=== PATIENT | female | born 1960 | race Caucasian/White ===

== ENCOUNTER 2018-02-07 14:00 | Outpatient (RCR) | payer BC, SELFPAY ==
--- NOTE | 2018-02-02 13:58 | HP.PTEVAL ---
Patient's Visit Information NNEKA WALL is a 57 year old F referred to Physical Therapy by Jarocho Foster DO with a diagnosis of Radiculopathy. Date of Evaluation: 02/02/18 Physical Therapist: Chad Alves PT, - Visit Plan Frequency: 1x/Week Plan: Educate and issue HEP of REIl, core stab ex's, HS rollout, and postural education - Subjective Findings: Pt reports she has had LBP for a few years. Pt reports she has been trying to exercise on her own in order to decrease her pain. Pt reports the pain has been progressively worsening over this span. Pt reports she has been taking meds also to decrease her pain. Pt notes she has had xrays and MRI which revealed degernerative changes in the L/S. Pt reports she has sleep difficulty secondary to pain. Pt reports prolonged standing increases her pain. Pt reports she has to lay down sometines to aleviate her pain. No tingling or numbness in her legs. 6/10 at rest, 7/10 at worst (prolonged standing). 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 - Pain LBP Pain Intensity (Out of 10): 6 Pain Intensity Range: 7 - Objective R Neuro: B LE sensation is WNL to light touch. B patellar reflex= 2/3. MMT: L LE 5/5 throughout. R LE 4/5 and painful with testing. L/S ROM: all ranges are WNL. Repeated movements: RFIS 10x2 increase R gluteal pain. MARIN 10x3 decreased pain - Goals Goal 1:: I with HEP in 2-3 visits Goal Time Frame: 2 Weeks - Rehabilitation Potential Physical Therapy Diagnosis: Pt has R gluteal pain and difficulty with prolonged standing secondary to L/S discderrangement Rehabilitation Potential: Good - Anticipated Interventions Patient/Client Instruction: Educate patient on: Condition, Plan of Care For the Purpose of:: To improve self management Therapeutic Exercise to Include: Strength training, Flexibilty training, Dynamic Lumbar Stabilization, Mikki Exercises For the Purpose of:: To decrease pain, To improve muscle performance and motor function Cryotherapy (ice pack, ice massage): Yes Thermo therapy (hot pack): Yes For the Purpose of:: To decrease pain, To increase ROM Thank you for the opportunity to evaluate your patient. For Medicare and Medicare HMO plans, please review the plan of care and approve it. It will need to be FAXED BACK to us at [phone] for Medicare purposes. For Medicare only, by signing this I certify the plan of care. Please let me know if there are questions or concerns regarding this plan of care. Physician Signature: Date:
--- NOTE | 2018-03-28 11:35 | HP.PT.NRP ---
HP - Discharge Summary (1) - Patient Information NNEKA WALL was seen in my office for initial evaluation on 02/02/18. The following Plan of Care was established for this patient: Initial Frequency: 1x/Week - Anticipated Interventions Patient/Client Instruction: Educate patient on: Condition, Plan of Care For the Purpose of:: To improve self management Therapeutic Exercise to Include: Strength training, Flexibilty training, Dynamic Lumbar Stabilization, Mikki Exercises For the Purpose of:: To decrease pain, To improve muscle performance and motor function Cryotherapy (ice pack, ice massage): Yes Thermo therapy (hot pack): Yes For the Purpose of:: To decrease pain, To increase ROM This patient was last seen in our office . Pertinent comments regarding their Physical therapy will appear below: Pt was treated for her second PT appointment on the date of 02/07/18 for her LBP. I planned on treating her again after that date, but pt has not returned through todays date and is therefore discontinued at this time At this point I will be discontinuing this patient from physical therapy. I would be happy to see this patient again in the future if found appropriate by the physician. Thank you! Chad Alves, PT, ATC
--- OUTSIDE RECORDS SUMMARY | 2018-03-30 15:20 | XMS RPT_ITS ---
:1960 Author Organization OHIP Care Team Providers Name Role Phone Jarocho Foster Attending Unavailable Jarocho Foster Primary Care Unavailable Jarocho Foster Attending Unavailable Jarocho Foster Referring Unavailable Jarocho Foster Primary Care Unavailable PROBLEMS PROBLEMS No Problem Records FoundPROCEDURES PROCEDURES No Procedure Records FoundRESULTS RESULTS INITAL EVALUATION (1) Observed: 02/02/2018 Status: F Source: [place] - PT 1:58 PM [facility] REPOSITORY [facility] [address] [place] [address] [address] [place] [address] Fax REHABILITATION SERVICES INITIAL EVALUATION MR#: [id number] Acct: [id number] Name: NNEKA WALL Rep #: [id number] : 1960 57 From: Chad Alves PT, ATC Referring DrLashanda: Jarocho Foster DO Status: REG RCR Insurance: [facility] PACKAGE PLAN Patient's Visit Information NNEKA WALL is a 57 year old F referred to Physical Therapy by Jarocho Foster DO with a diagnosis of Radiculopathy. Date of Evaluation: 11/29/18 Physical Therapist: Chad Alves, PT, - Visit Plan Frequency: 1x/Week Plan: Educate and issue HEP of REIl, core stab ex's, HS rollout, and postural education - Subjective Findings: Pt reports she has had LBP for a few years. Pt reports she has been trying to exercise on her own in order to decrease her pain. Pt reports the pain has been progressively worsening over this span. Pt reports she has been taking meds also to decrease her pain. Pt notes she has had xrays and MRI which revealed degernerative changes in the L/S. Pt reports she has sleep difficulty secondary to pain. Pt reports prolonged standing increases her pain. Pt reports she has to lay down sometines to aleviate her pain. No tingling or numbness in her legs. 6/10 at rest, 7/10 at worst (prolonged standing). 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 - Pain LBP Pain Intensity (Out of 10): 6 Pain Intensity Range: 7 - Objective R Neuro: B LE sensation is WNL to light touch. B patellar reflex= 2/3. MMT: L LE 5/5 throughout. R LE 4/5 and painful with testing. L/S ROM: all ranges are WNL. Repeated movements: RFIS 10x2 increase R gluteal pain. MARIN 10x3 decreased pain - Goals Goal 1:: I with HEP in 2-3 visits Goal Time Frame: 2 Weeks - Rehabilitation Potential Physical Therapy Diagnosis: Pt has R gluteal pain and difficulty with prolonged standing secondary to L/S discderrangement Rehabilitation Potential: Good - Anticipated Interventions Patient/Client Instruction: Educate patient on: Condition, Plan of Care For the Purpose of:: To improve self management Therapeutic Exercise to Include: Strength training, Flexibilty training, Dynamic Lumbar Stabilization, Mikki Exercises For the Purpose of:: To decrease pain, To improve muscle performance and motor function Cryotherapy (ice pack, ice massage): Yes Thermo therapy (hot pack): Yes For the Purpose of:: To decrease pain, To increase ROM Thank you for the opportunity to evaluate your patient. For Medicare and Medicare HMO plans, please review the plan of care and approve it. It will need to be FAXED BACK to us at [phone] for Medicare purposes. For Medicare only, by signing this I certify the plan of care. Please let me know if there are questions or concerns regarding this plan of care. Physician Signature: Date: <Electronically signed by Chad Alves PT, ATC> 02/02/18 1358 CC: Jarocho Foster DO [facility] Signed HIP 2-3 VIEWS WITH Observed: 03/16/2017 Status: F Source: [place] PELVIS 7:33 AM [facility] REPOSITORY [facility] Imaging Services [address] [place] [address] [place] [address] Hip 2-3 Views with Pelvis MR#: [id number] Acct: [id number] Name: NNEKA WALL Rep #: [id number] : 1960 F 56 From: Justo Croft MD PCP: Jarocho Foster DO Status: REG CLI Study: Hip 2-3 Views with Pelvis Date of Exam: 03/16/17 Exam# [id number] Ordering Dr: Jarocho Foster DO STUDY: X-RAY - PELVIS AND RIGHT HIP REASON FOR EXAM: Female, 56 years old. Chronic pain in the right hip TECHNIQUE: Radiological exam, hip, unilateral, with pelvis when performed; 2 or 3 views. COMPARISON: None. FINDINGS: There is a non-specific bowel gas pattern. There is a small calcific deposit adjacent to the greater trochanter consistent with calcific peritendinitis. There is a transitional lumbosacral vertebra. Normal bilateral iliac wings, sacroiliac joints and visualized sacrum. Normal bilateral superior and inferior pubic rami. Normal pubic symphysis. Normal bilateral ischial tuberosities. Normal visualized femoral head. Normal acetabulum. Normal hip joint. RAD/Hip 2-3 Views with Pelvis IMPRESSION: Calcific peritendinitis adjacent to the right greater trochanter Transitional lumbosacral vertebra Electronically Signed: Justo Croft MD, FACR at 12:22 EST , Service support , CC: Jarocho Foster DO Wrapper Layer: Signed L/S SPINE MIN 4 Observed: 03/16/2017 Status: F Source: [place] VIEWS 7:33 AM [facility] REPOSITORY [facility] Imaging Services [address] [place] [address] L/S Spine Min 4 Views MR#: [id number] Acct: [id number] Name: NNEKA WALL Rep #: [id number] : 1960 F 56 From: Justo Croft MD PCP: Jarocho Foster DO Status: REG CLI Study: L/S Spine Min 4 Views Date of Exam: 03/16/17 Exam# [id number] Ordering Dr: Jarocho Foster DO STUDY: X-RAY - LUMBAR SPINE REASON FOR EXAM: Female, 56 years old. Chronic low back and right hip pain TECHNIQUE: 5 view(s) of the lumbar spine were obtained. COMPARISON: X-rays of the lumbar spine on January 09, 2014 FINDINGS: Normal lumbar lordosis. There is no substantial scoliosis. There is a normal alignment of the vertebrae. There is a transitional lumbosacral vertebra with sacralization of L5 Normal vertebral bodies. There are small anterior osteophytes throughout the lumbar spine. There is disc space narrowing at L5-S1. The soft tissue structures are unremarkable. RAD/L/S Spine Min 4 Views IMPRESSION: Transitional lumbosacral vertebrae with sacralization of L5 and rudimentary disc at L5-S1. Mild degenerative changes. No significant changes since the prior study. Electronically Signed: Justo Croft MD, FACR at 12:24 EST , Service support , CC: Jarocho Foster DO Wrapper Layer: Signed ALLERGIES ALLERGIES No Allergies Records FoundENCOUNTERS ENCOUNTERS ADMIT/DISCHARGE ACCOUNT ADMITTING ENCOUNTER LOCATION SOURCE NUMBER CLASS 02/07/2018 [id number] Ambulatory [place] [facility] ing:PT Repository 03/16/2017 [id number] Ambulatory [place] [facility] ing:MTRAD Repository PAYERS PAYERS ENCOUNTER GUARANTOR PAYER SUBSCRIBER SOURCE 02/07/2018 VAIBHAV [id number] Primary VAIBHAV HOGEADOB: [place] HEND[place] JONA, Insurance:[employer] [id number] [facility] [address]Ktn: y Number: Hospital [id number] Repository (HP) kassidy Date:8528-24-81SX [id number] [place] [address]MU: 02/07/2018 Secondary NNEKA HOGEADOB: [place] Insurance:[employer] [id number] [facility] Number: Hospital [id number] Repository Date:2018-02-01 02/07/2018 Tertiary NOT GIVENUNK [place] Insurance:SELF PAY [facility] Number: Effective Repository Date:2018-02-01 03/16/2017 Vaibhav [id number] Primary VAIBHAV HOGEADOB: [place] Jona, Insurance:ANTHE[employer]olic [id number] [facility] [address]Wyh: y Number: [facility] [id number] Repository (HP) kassidy Date:3287-43-22SY [address], [place] [address]NV: 03/16/2017 Secondary NOT GIVENUNK [place] Insurance:SELF PAY [facility] Number: Effective Repository Date:2017-03-16
== END 2018-02-07 19:00 | disposition home or self-care (01) ==
LOC: PT 14:00
PROVIDERS: Family Provider Family Medicine; PCP Family Medicine; Referring Provider Family Medicine; Visit Provider Family Medicine
DX: M54.16 Radiculopathy, lumbar region (principal)
CPT/HCPCS: 97162; 97530

== ENCOUNTER → 2018-03-28 13:53 | Outpatient (CLI) | payer BC, SELFPAY ==
[2018-03-31 11:41] LABS: HPV Reflexed? NOT INDICATED
--- OUTSIDE RECORDS SUMMARY | 2018-05-30 18:52 | XMS RPT_ITS ---
:1960 Author Organization OHIP Care Team Providers Name Role Phone Gena Mcfarlane Attending Unavailable Jarocho Foster Attending Unavailable Jarocho Foster Referring Unavailable Jarocho Foster Primary Care Unavailable PROBLEMS PROBLEMS DATE TYPE CONDITION / CODE ATTENDING STATUS SOURCE 03/28/2018 Unknown Z12.4 - Gena Mcfarlane Active [place] Encounter for Community screening for Hospital malignant Repository neoplasm of cervix / Z12.4(ICD-10) 03/30/2018 Unknown M54.16 - Jarocho Foster Active [place] Radiculopathy, Community lumbar region / Hospital M54.16(ICD-10) Repository PROCEDURES PROCEDURES No Procedure Records FoundRESULTS RESULTS PAP I-G W/RFX HRHPV Collected: 03/28/2018 Status: F Source: [place] 10:30 AM [facility] REPOSITORY Order Comment: CYTOLOGY INFORMATION: - CLINICAL INFORMATION: - DATE LMP/MENOPAUSE: MENOPAUSE - COLLECTION VIAL: Thin Prep Vial - MOTION STUDY TECHNICIAN SOURCE: CERVICAL/ENDOCERVICAL - COLLECTION TECHNIQUE: BRUSH/SPATULA Specimen Comment: [id number] Specimen Comment: Source.............Cervix;Endocervix Specimen Comment: Other..............Post Menopausal Specimen Comment: No. of containers..01 ThinPrep Vial TYPE CODE TESTS RESULT OUT OF RANGE REFERENCE UNITS LAB L7400.0800 . Normal DIAGN Comment Result Comment: NEGATIVE FOR INTRAEPITHELIAL LESION OR MALIGNANCY. LAB L7400.0900 . Normal ADEQ Comment Result Comment: Satisfactory for evaluation. Endocervical and/or squamous metaplastic cells (endocervical component) are present. LAB L7400.1400 . Normal PERFORM Comment Result Comment: Megan Palacio, Mailing Machine Helper (ASCP) LAB L7400.2575 . Normal TEST METHOD Comment Result Comment: This liquid based ThinPrep(R) pap test was screened with the use of an image guided system. LAB L7400.2600 . Normal . COMM LAB L7400.2700 . Normal PAPSMR Comment Result Comment: The Pap smear is a screening test designed to aid in the detection of premalignant and malignant conditions of the uterine cervix. It is not a diagnostic procedure and should not be used as the sole means of detecting cervical cancer. Both false-positive and false-negative reports do occur. LAB L7400.2800 . Normal HPV RFLX Comment Result Comment: The HPV DNA reflex criteria were not met with this specimen result therefore, no HPV testing was performed. Performed at: [address] [id number] Insurance Salesman: Tuyet Parmar MD, Phone: [phone] Performed By: #### L7400.0350 #### [facility] (refer to report for specific site) refer to report for address and phone number INITAL EVALUATION (1) Observed: 02/02/2018 Status: F Source: [place] - PT 1:58 PM [facility] REPOSITORY [facility] Physical Therapy [address] [place], [place] [address] Fax REHABILITATION SERVICES INITIAL EVALUATION MR#: [id number] Acct: [id number] Name: NNEKA WALL Rep #: [id number] : 1960 57 From: Chad Alves PT, ATC Referring Dr.: Jarocho Foster DO Status: REG RCR Insurance: [facility] PACKAGE PLAN Patient's Visit Information NNEKA WALL is a 57 year old F referred to Physical Therapy by Jarocho Foster DO with a diagnosis of Radiculopathy. Date of Evaluation: 02/02/18 Physical Therapist: Chad Alves, PT, - Visit [...] at worst (prolonged standing). 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 - Pain LBP Pain Intensity (Out of [...] to be FAXED BACK to us at [phone] for Medicare purposes. For Medicare only, by signing this I certify the plan of care. Please let me know if there are questions or concerns regarding this plan of care. Physician Signature: Date: <Electronically signed by Chad Alves PT, ATC> 02/02/18 1358 CC: Jarocho Foster DO [facility] Signed ALLERGIES ALLERGIES No Allergies Records FoundENCOUNTERS ENCOUNTERS ADMIT/DISCHARGE ACCOUNT ADMITTING ENCOUNTER LOCATION SOURCE NUMBER CLASS 03/28/2018 [id number] Ambulatory [place] [facility] ing:LABSPEC Repository 02/07/2018/ [id number] Ambulatory [place] [address] [place] [address] ing:PT Repository PAYERS PAYERS ENCOUNTER GUARANTOR PAYER SUBSCRIBER SOURCE 03/28/2018 VAIBHAV [id number] Primary VAIBHAV HOGEADOB: [place], Insurance:[employer] [id number] [facility] [place] [address]Bel: y Number: [facility] [id number] Repository (HP) kassidy Date:[id number] [address], [place] [address]JV: 03/28/2018 Secondary NOT GIVENUNK [place] Insurance:SELF PAY [facility] Number: Effective Repository Date:2018-03-28 02/07/2018 VAIBHAV [id number] Primary VAIBHAV HOGEADOB: [place] BRANDIELILIAN ORTA, Insurance:[employer] [id number] [facility] [place] [address]Bvv: y Number: [facility] [id number] Repository (HP) kassidy Date:6379-63-40ZL [address] [place] [address]XY: 02/07/2018 Secondary NNEKA CHELEB: [place] Insurance:[facility] PACKAGE [id number] [facility] [id number] Repository Date:2018-02-01 02/07/2018 Tertiary NOT GIVENUNK [place] Insurance:SELF PAY [facility] Number: Effective Repository Date:2018-02-01
== END ==
PROVIDERS: Visit Provider Obstetrics & Gynecology
DX: Z12.4 Encounter for screening for malignant neoplasm of cervix (principal)
CPT/HCPCS: 88175; G0145

== ENCOUNTER → 2018-05-01 07:04 | Outpatient (CLI) | payer BC, SELFPAY ==
--- NOTE | 2018-05-01 07:07 | BI_ITS ---
MAMMOGRAPHY - BILATERAL SCREENING REASON FOR EXAM: Female, 57 years old. Routine annual screening examination. PERTINENT HISTORY: Non-contributory. TECHNIQUE: Digital bilateral breast jeanette (3D mammographic acquisition) in the CC and MLO projections. 2-D mediolateral oblique (MLO) and craniocaudad (CC) views of both breasts were obtained. CAD: Full Field Digital Mammography with Computer Added Detection was performed. COMPARISON: Comparison is made with prior study dated June 10, 2012 and June 23, 2009. FINDINGS: Breast Composition: There are scattered areas of fibroglandular density. There are no dominant masses or suspicious calcifications. No other significant abnormalities are identified. There has been no significant change since the prior study. BI/SCREENING MAMM (CAD), BILAT IMPRESSION: Stable bilateral screening mammogram. Yearly follow-up mammogram recommended. (A) ASSESSMENT CATEGORY: BIRADS Category 1: Negative. A letter regarding these results will be sent to the patient by the facility within 30 days. Approximately 10% of breast cancers are not detected by mammography. A normal mammogram should not delay biopsy of a clinically suspicious abnormality. [id number] Electronically Signed: Basilio Perdue MD at 9:40 EST , Service support ,
== END ==
PROVIDERS: Family Provider Family Medicine; PCP Family Medicine; Referring Provider Obstetrics & Gynecology; Visit Provider Obstetrics & Gynecology
DX: Z12.31 Encounter for screening mammogram for malignant neoplasm of breast (principal)
CPT/HCPCS: 77063; 77067

== ENCOUNTER → 2018-05-17 16:43 | Outpatient (CLI) | payer BC, SELFPAY ==
--- NOTE | 2018-05-17 16:47 | MRI_ITS ---
STUDY: MRI LUMBAR SPINE WITHOUT CONTRAST REASON FOR EXAM: Female, 57 years old. Lower back pain radiating into right leg TECHNIQUE: Standardized fat and water weighted pulse sequences were obtained in the sagittal and axial planes. COMPARISON: None FINDINGS: T12-L1: Normal endplates. Normal disc height, hydration and morphology. Normal bilateral facet joints. Normal central canal and bilateral lateral recesses. Normal bilateral intervertebral neural foramina. Normal lumbar lordosis. There is no substantial scoliosis. Normal conus medullaris that terminates at the L1-2: There are Schmorl's nodes at L1 and L2. Normal disc height, hydration and morphology. Normal bilateral facet joints. Normal central canal and bilateral lateral recesses. Normal bilateral intervertebral neural foramina. L2-3: There is a small likely ligamentous central disc protrusion. Moderate facet degenerative changes and ligamentous hypertrophy. Mild central canal narrowing. There is no left foraminal stenosis. There is mild right foraminal stenosis. There is mild increased T2 signal within the right posterior lateral disc margin. L3-4: There is disc space narrowing. There is a small central posterior bulging annulus. There are moderate facet degenerative changes and ligamentous hypertrophy. There is Mild central canal narrowing. There is mild left lateral foraminal narrowing. There is no right foraminal stenosis. L4-5: There is a small central likely subligamentous disc protrusion. There are moderate facet degenerative changes and ligamentous hypertrophy. Mild central canal narrowing. There is no right foraminal stenosis. There is mild right foraminal stenosis. L5-S1: Normal endplates. Normal disc height, hydration and morphology. There is mild facet spondylosis.. Normal central canal and bilateral lateral recesses. Normal bilateral intervertebral neural foramina. Normal visualized sacral ala. Normal visualized paraspinous soft tissue structures. MRI/Spine Lumbar (Routine) IMPRESSION: Multilevel spondylosis as above, multilevel disc osteophytes, multilevel central canal and foraminal stenoses Subligamentous disc protrusions at L4-L5 and L2-L3 Right posterior lateral bulging annulus and small annular tear at L2-L3 Electronically Signed: Ollie Bernal, at 0:14 EDT Tel , Service support ,
== END ==
PROVIDERS: Family Provider Family Medicine; PCP Family Medicine; Referring Provider Anesthesiology Pain Medicine; Visit Provider Anesthesiology Pain Medicine
DX: M51.17 Intervertebral disc disorders with radiculopathy, lumbosacral region (principal); M54.5 Low back pain
CPT/HCPCS: 72148

== ENCOUNTER → 2018-07-06 | Outpatient (CLI) | payer BC, SELFPAY ==
[2018-07-06 10:29] LABS: Anion Gap 8 (5-15); BUN 16 mg/dL (7-18); BUN/Creat Ratio 20.4 RATIO (10-20); Calcium,Total 9.2 mg/dL (8.5-10.1); Chloride 107 mmol/L (98-107); Creatinine, Serum 0.78 mg/dL (0.55-1.02); EST Glomerular Filtration Rate 80 mL/min (>60); Est Glom Filt Rate - Afr Amer 97 mL/min (>60); Glucose 89 mg/dL (74-106); Potassium 3.9 mmol/L (3.5-5.1); Sodium Level 141 mmol/L (136-145)
== END | disposition home or self-care (01) ==
LOC: MTLAB 07:02
PROVIDERS: Family Provider Family Medicine; PCP Family Medicine; Referring Provider Nurse Practitioner Family; Visit Provider Nurse Practitioner Family
DX: Z79.1 Long term (current) use of non-steroidal anti-inflammatories (NSAID) (principal)
CPT/HCPCS: 36415; 80048

== ENCOUNTER → 2018-07-26 | Outpatient (CLI) | payer BC, SELFPAY ==
[2018-07-26 11:18] LABS: Bacteria 0 SEEN /hpf (None Seen); Mucous, Urine 0 SEEN /hpf (<or=2+); Red Blood Cells-Urine 0 SEEN /hpf (0-5)
[2018-07-26 12:41] LABS: Absolute Lymphocyte Count 1.87 X10^3/ul (0.83-4.51); Absolute Neutrophil Count 6.4 X10^3/uL (2.0-7.7); Basophil# 0.04 X10^3/uL; Basophil% 0.4 % (0-1); Eosinophil# 0.12 X10^3/uL; Eosinophils% 1.3 % (0-5); Lymphocyte # 1.87 X10^3/ul (4.0); Lymphocyte % 20.5 % (19-41); Mean Corp Hgb Conc 34.1 g/gl (32-36); Mean Corpuscular Hgb 30.3 pg (27.0-32.0); Mean Corpuscular Volume 88.9 fL (81-99); Monocyte# 0.73 X10^3/uL; Neutrophil # 6.36 X10^3/uL (2.7-7.7); Neutrophil % 69.6 % (47-70); Platelet Count 306 K/mm3 (150-450); RBC Distribution Width CV 12.2 % (11.6-14.6); RBC Distribution Width SD 39.5 fl (35.1-43.9); Red Blood Count 4.95 M/mm3 (4.2-5.4); White Blood Count 9.1 K/mm3 (4.4-11.0)
[2018-07-26 12:49] LABS: POSITIVE COUNT NO; POSITIVE DIFFERENTIAL NO; POSITIVE MORPHOLOGY NO
[2018-07-26 12:58] LABS: Vitamin B12 530 pg/mL (211-911)
[2018-07-26 13:03] LABS: Color, Urine Yellow (Yellow); Glucose, Dipstick Normal (Normal); Ketone-Dipstick Negative (Negative); Leukocyte Esterase-Dipstick 500 /ul (Negative); Nitrite-Dipstick Negative (Negative); Occult Blood-Urine Negative /ul (Negative); Protein-Dipstick Negative (Negative); Urine Bilirubin Dipstick Negative (Negative); Urine Clarity Sl. Cloudy (Clear); Urine Urobilinogen Normal (Normal)
[2018-07-26 13:05] LABS: AST(SGOT) 16 U/L (15-37); Alanine Aminotransfer ALT/SGPT 30 U/L (13-56); Albumin, Serum 4.2 g/dL (3.2-5.0); Alkaline Phosphatase 77 U/L (45-117); Bilirubin, Direct 0.12 mg/dL (0.00-0.30); Protein, Total 8.2 g/dL (6.4-8.2); T4 Free Direct 0.99 ng/dL (0.76-1.46)
[2018-07-26 13:10] LABS: Squamous Epithelial Cells - UA 0-5 SEEN /hpf (5-10); White Blood Cells 25-50 SEEN /hpf (0-5)
== END | disposition home or self-care (01) ==
LOC: BFHLAB 11:15
PROVIDERS: Family Provider Family Medicine; PCP Family Medicine; Visit Provider Family Medicine
DX: G62.9 Polyneuropathy, unspecified (principal); R53.83 Other fatigue; M54.5 Low back pain
CPT/HCPCS: 36415; 80076; 81001; 82607; 84439; 84443; 85025

== ENCOUNTER → 2019-03-29 07:05 | Outpatient (CLI) | payer BC, SELFPAY ==
[2019-03-29 10:23] LABS: ALB/GLOB Ratio 1.2 RATIO (0.9-2.4); AST(SGOT) 19 U/L (15-37); Alanine Aminotransfer ALT/SGPT 33 U/L (13-56); Albumin, Serum 4.1 g/dL (3.2-5.0); Alkaline Phosphatase 72 U/L (45-117); Anion Gap 5 (5-15); BUN 16 mg/dL (7-18); BUN/Creat Ratio 18.4 RATIO (10-20); Calcium,Total 9.2 mg/dL (8.5-10.1); Chloride 108 mmol/L (98-107); Cholesterol 272 mg/dL (200); Creatinine, Serum 0.87 mg/dL (0.55-1.02); EST Glomerular Filtration Rate 71 mL/min (>60); Est Glom Filt Rate - Afr Amer 86 mL/min (>60); Globulin 3.4 g/dL (2.2-4.2); Glucose 95 mg/dL (74-106); High Density Lipoprotein 44 mg/dL; Potassium 3.7 mmol/L (3.5-5.1); Protein, Total 7.5 g/dL (6.4-8.2); Sodium Level 140 mmol/L (136-145); Triglycerides 187 mg/dL; Very Low Density Lipoprotein 37 mg/dL (5-40)
== END ==
PROVIDERS: PCP Family Medicine; Referring Provider Family Medicine; Visit Provider Family Medicine
DX: Z00.00 Encounter for general adult medical examination without abnormal findings (principal)
CPT/HCPCS: 36415; 80053; 80061

== ENCOUNTER 2019-04-11 15:00 | Outpatient (RCR) | payer BC, SELFPAY ==
--- NOTE | 2019-02-05 13:10 | HP.PTEVAL ---
Patient's Visit Information NNEKA WALL is a 58 year old F referred to Physical Therapy by Ingrid Ch MD with a diagnosis of S/P RIGHT HIP SCOPE 01/17/19.. Date of Evaluation: 02/05/19 Physical Therapist: Puja Rivas PT, Cert MDT - Visit Plan Frequency: 2-3x /Week Duration: 4-6 Weeks Plan: AVOID PAIN CHECK INCISION. START CIRCUMDUCTION PER PROTOCOL NEXT VISIT. REVIEW PRECAUTIONS NEXT VISIT. LABRAL TEAR MILTON (FEMOROACETABULAR IMPINGEMENT SYNDROME) PROTOCOL. OK TO BEGIN WBAT AT WEEK 4 POST OP (02/14/19). SEE PROTOCOL IN FOLDER. - Subjective Findings: DIAGNOSIS: S/P RIGHT HIP SCOPE WITH LABRAL REPAIR. DECOMPRESSION OF PARA;ABRAL CYST. ACETABULOPLASTY. CHONDROPLASTY. SYNOVECTOMY. FEMOROPLASTY. CAPSULAR CLOSURE ON 01/17/19. 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 5 DAYS AFTER SURGERY SHE RESUMED WORKING FROM HER BED AT HOME MUCH SHE COULD. PLANS TO GO IN TO WORK TODAY FOR THE FIRST TIME. Disability: NO. Present symptoms: MILD RIGHT HIP PAIN. NO LE NUMBNESS OR TINGLING. NO LOW BACK PAIN NOW BUT DID AFTER SURGERY. Present since: ABOUT 5 YEARS AGO. Pain Scale: WORST 3/10, LEAST 0/10. Currently: 2/10. Commenced as a result of: NO APPARENT REASON OTHER THAN SLIPPING ON ICE ABOUT 3 YEARS AGO. Symptoms at onset: RIGHT HIP PAIN RADIATING TO BACK AND LEFT HIP. RIGHT KNEE TINGLING BEFORE SURGERY. Worse: TOUCHING FOOT DOWN ON FLOOR. KNOWS SHE IS NOT SUPPOSED TO TOUCH IT DOWN YET BUT SHE TESTED IT A LITTLE AND IT HURT. STATES THE DOCTOR TOLD HER NOT TO PUT IT DOWN AT ALL YET UNTIL 4 WEEKS. Better: LYING DOWN FLAT ON BACK. Disturbed sleep: NOT DUE TO HIP PAIN. Previous history/Previous treatment: PATIENT REPORTS SHE STARTED SEEKING HELP FOR THIS IN 2013. MOST OF THE FOCUS WITH IMAGING AND TREATMENT HAS FOCUSED ON HER BACK UNTIL ABOUT AUGUST [address] JULIANO AMBROSE TOLD HER IT IS NOT HER BACK. HE REFERRED HER TO DR. INGRID CH AND ORDERED MRI WITH CONTRAST. PATIENT REPORTS SHE HAD 5 OR 6 MRI'S OF HER LOW BACK, SAW A CHIROPRACTOR AND EVEN HAD DANK'S WITHOUT SUCCESS. PATIENT REPORTS HAVING BAD SIDE EFFECTS TO THE DANK'S. Gait: USING CRUTCHES AND TRYING TO MAINTAIN NWB. Difficulty initiating urinatin: NO. Accidents: NO. Unexplained weight loss: NO. Imaging: NONE SINCE SURGERY. PMH: UNREMARKABLE. 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 HAD TO STOP WORKING OUT AT [employer] IN APPROX APR 2018 DUE TO HIP PAIN. OTHER: WAS USING CPM MACHINE AT HOME FOR HIP X 2 WEEKS AFTER SURGERY AND REPORTS SHE GOT UP TO 120 DEG. RETURNED MACHINE AT SURGICAL FOLLOW UP LAST WEEK. - Objective THIS PATIENT AMBULATES INDEP'LY INTO PT ON NGUYEN AXILLARY CRUTCHES NWB ON RIGHT LE. SHE IS ABLE TO INDEP'LY TRANSFER FROM SIT TO STAND AND REVERSE, AND FROM SIT TO SUPINE AND REVERSE. NGUYEN LE LIGHT TOUCH SENSATION, ROM AND STRENGTH IS WFL EXCEPT RIGHT HIP MMT NOT PERFORMED AND PATIENT HAS RIGHT HIP AAROM FLEXION TO AT LEAST 100 DEG. ABLE TO DO ASSISTED SLR WITHOUT DIFFICULTY ON RIGHT BUT NO ACTIVE SLR YET PER PROTOCOL. RIGHT KNEE ANKLE AND FOOT ROM AND STRENGTH IS GOOD. CORE STRENGTH IS POOR. INITIATED HEP OF ISO ABDOMINALS, GLUT SETS, QUAD SETS AND SUPINE HIP ABD/ADD (3X10, 3 TIMES A DAY) WITH GOOD TOLERANCE TODAY. ENCOURAGED PATIENT TO MAINTAIN NWB STATUS PER SURGEON UNTIL 4 WEEKS PO. INSTRUCTED TO AVOID HIP EXTENSION. ALSO INSTRUCTED TO AVOID HIP ROTATION UNTIL FURTHER INSTRUCTION GIVEN. PRECAUTIONS REVIEWED PER PROTOCOL BUT RECOMMEND REINFORCEMENT NEXT VISIT. PATIENT MOVES A LITTLE IMPULSIVELY AT TIMES BUT FOLLOWS COMMANDS WELL. PATIENT APPEARS HIGHLY MOTIVATED TO RETURN TO PLOF. - Goals Goal 1:: DECREASE C/O RIGHT HIP PAIN Goal Time Frame: 4-6 Weeks Goal 2:: INDEP AND SAFE GAIT ON ALL SURFACES WITH LEAST ASSISTIVE DEVICE AND DEVIATIONS PROGRESSING PER PROTOCOL Goal Time Frame: 4-6 Weeks Goal 3:: IMPROVE STANDING, WALKING, ADL, WORK AND RECREATIONAL FUNCTION TOLERATED ADN PER PROTOCOL Goal Time Frame: 4-6 Weeks Goal 4:: INDEP HEP FOR CONTINUED IMRPVEMENT ONCE FORMAL PHYSICAL THERAPY CONCLUDES. Goal Time Frame: 4-6 Weeks - Rehabilitation Potential Rehabilitation Potential: Fair - Anticipated Interventions Patient/Client Instruction: Educate patient on: Condition, Plan of Care, Risk Factors, Benefits of Fitness Program For the Purpose of:: To improve self management Therapeutic Exercise to Include: Strength training, Body mechanics, Postural training, Flexibilty training, Gait and locomotor training, Passive ROM, Active ROM, Dynamic Lumbar Stabilization, Scapular Strength/Stabilization Comment: PER FAIS PROTOCOL ON FILE. For the Purpose of:: To decrease pain, To decrease swelling/inflammation, To increase ROM, To improve muscle performance and motor function, To improve ability to perform ADL's, To increase tolerance to activity/condition/position, To improve ability of physical actions for home/community/work/leisure, To improve gait and locomotor functions Thank you for the opportunity to evaluate your patient. For Medicare and Medicare HMO plans, please review the plan of care and approve it. It will need to be FAXED BACK to us at [phone] for Medicare purposes. For Medicare only, by signing this I certify the plan of care. Please let me know if there are questions or concerns regarding this plan of care. Physician Signature: Date:
--- NOTE | 2019-03-06 14:12 | HP.PTREVAL ---
Fran Yates MD, It has been my pleasure to treat NNEKA WALL over the last 12 visits for S/P RIGHT HIP SCOPE 01/17/19.. Please see the progress note below for an update on the physical therapy plan of care! Subjective: PATIENT REPORTS LOW BACK PAIN AFTER PROGRESSING FROM MODIFIED PLANKS TO FULL PLANKS LAST VISIT. STATES HER BACK IS BETTER NOW. PATIENT REPORTS THAT OVER-ALL SHE IS GETTING BETTER. SHE STATES SHE HAS A LOT BETTER FLEXABILITY OF HER LEG NOW AND SHE HAS STRENGTH NOW. SHE STATES IT IS A LOT BETTER AND HER LEG WAS VERY WEAK BEFORE. SHE REPORTS THAT WHEN SHE BENDS OVER HER LEGS STILL FEEL SOME TIGHT. SHE ALSO REPORTS THAT IF SHE MOVES HER RIGHT LEG OUT TO THE SIDE OR ROTATES IT TOO MUCH IT STARTS TO HER IN HER HIP. FOLLOW UP PENDING WITH SURGEON NEXT WEEK. PATIENT REPORTS SHE SITS TOO MUCH ALL DAY AND CAN GET UP TO 4/10 PAIN. DOING HEP AND THE EX'S DO NOT HURT. Objective/Function: PATIENT IS MAKING GREAT PROGRESS WITH PT. HER GAIT PATTERN HAS NORMALIZED AND SHE DENIES PAIN WITH WALKING. PATIENT REPORTS NORMAL ADL'S EXCEPT SHE HAS TO REST ABOUT EVERY 40 MINUTES AND SHE HAS SOME PAIN TRYING TO GET RIGHT SHOE ON. PATIENT IS MAKING GREAT PROGRESS TOWARD MEETING THE 4-8 WEEK PO PROTOCOL CRITERIA FOR PROGRESSION TO PHASE 3: HER HIP PAIN FREE ROM IS BECOMING SYMMETRICAL EXCEPT ERP WITH RIGHT HIP ER. SHE HAS SYMMETRICAL DOUBLE LEG SQUAT TO 60 DEG KNEE FLEX. SHE IS ABLE TO DO 10 REPS OF STEP DOWNS WITH GOOD NEUROMUSCULAR CONTROL AND SHE HAS A NORMALIZED GAIT PATTERN WITHOUT PAIN. Plan Plan: HOLD PT UNTIL SURGICAL RE-CHECK NEXT WEEK. PATIENT AGREEABLE. IF SO ORDERED, CONTINUE PER PROTOCOL IN FILE APPROPRIATE. Goals Goal 1:: DECREASE C/O RIGHT HIP PAIN Goal Time Frame: 4-6 Weeks Goal Progress: Progressing Goal 2:: INDEP AND SAFE GAIT ON ALL SURFACES WITH LEAST ASSISTIVE DEVICE AND DEVIATIONS PROGRESSING PER PROTOCOL Goal Time Frame: 4-6 Weeks Goal Progress: Progressing Goal 3:: IMPROVE STANDING, WALKING, ADL, WORK AND RECREATIONAL FUNCTION TOLERATED ADN PER PROTOCOL Goal Time Frame: 4-6 Weeks Goal Progress: Progressing Goal 4:: INDEP HEP FOR CONTINUED IMRPVEMENT ONCE FORMAL PHYSICAL THERAPY CONCLUDES. Goal Time Frame: 4-6 Weeks Goal Progress: Progressing Anticipated Interventions Patient/Client Instruction: Educate patient on: Condition, Plan of Care, Risk Factors, Benefits of Fitness Program For the Purpose of:: To improve self management Therapeutic Exercise to Include: Strength training, Body mechanics, Postural training, Flexibilty training, Gait and locomotor training, Passive ROM, Active ROM, Dynamic Lumbar Stabilization, Scapular Strength/Stabilization Comment: PER FAIS PROTOCOL ON FILE. For the Purpose of:: To decrease pain, To decrease swelling/inflammation, To increase ROM, To improve muscle performance and motor function, To improve ability to perform ADL's, To increase tolerance to activity/condition/position, To improve ability of physical actions for home/community/work/leisure, To improve gait and locomotor functions Please do not hesitate to contact me at [phone] by phone or if you have questions or concerns regarding this new plan of care! Sincerely, Puja Rivas, PT, Cert MDT
--- NOTE | 2019-05-11 13:30 | HP.PT.NRP ---
HP - Discharge Summary (1) - Patient Information NNEKA WALL was seen in my office for initial evaluation on 02/05/19. The following Plan of Care was established for this patient: Initial Frequency: 2-3x /Week Initial Duration: 4-6 Weeks - Anticipated Interventions Patient/Client Instruction: Educate patient on: Condition, Plan of Care, Risk Factors, Benefits of Fitness Program For the Purpose of:: To improve self management Therapeutic Exercise to Include: Strength training, Body mechanics, Postural training, Flexibilty training, Gait and locomotor training, Passive ROM, Active ROM, Dynamic Lumbar Stabilization, Scapular Strength/Stabilization For the Purpose of:: To decrease pain, To decrease swelling/inflammation, To increase ROM, To improve muscle performance and motor function, To improve ability to perform ADL's, To increase tolerance to activity/condition/position, To improve ability of physical actions for home/community/work/leisure, To improve gait and locomotor functions This patient was last seen in our office 04/11/19. Pertinent comments regarding their Physical therapy will appear below: This patient has not returned to Physical Therapy and is appropriate to return to MD for further follow-up as needed. At this point I will be discontinuing this patient from physical therapy. I would be happy to see this patient again in the future if found appropriate by the physician. Thank you! Puja Rivas, PT, Cert MDT
== END 2019-04-11 19:00 | disposition home or self-care (01) ==
LOC: PT 15:00
PROVIDERS: Family Provider Family Medicine; PCP Family Medicine; Referring Provider Orthopaedic Surgery Sports Medicine; Visit Provider Orthopaedic Surgery Sports Medicine
DX: M25.851 Other specified joint disorders, right hip (principal)
CPT/HCPCS: 97110; 97162; 97530

== ENCOUNTER 2019-08-03 06:57 | Day surgery (SDC) | payer BC, SELFPAY ==
[2019-08-03 07:21] VITALS: BP 158/89; PULSE 86; RESP 16; TEMP 36.4; O2SAT 100; BMI 28.8
[2019-08-03] MEDS: Lactated Ringers 1,000 ML 100 ML IV (07:28)
--- NOTE | 2019-08-03 07:49 | H&P.OPEN ---
History of Present Illness Date of Admission: 08/03/19 The patient is a 58 year old F here for screening colonoscopy. The patient reports he has never had a colonoscopy in the past. She is not having any abdominal pain or blood in her stool. She denies any family history of colon cancer. Past Medical/Surgical History - Planned Operation Planned Operative Procedure/s: COLONOSCOPY Date of Operative Procedure: 08/03/19 Permit Signed: Yes S.O.S: No Is This Patient Having a Total Joint: No - Previous Hospitalizations/Surgeries HX Hospitalizations: No HX of Surgeries: LABRUM REPAIR RIGHT LEG Any Problems With Anesthesia: No You/Your Family Experience Fever (Hyperthermia) With Anes: No Cholinesterase deficiency: No - Cardiovascular Hx Chest Pain within Last 2 months: No Hx of Irregular Heartbeat and/or Afib: No Hx Heart Attack: No Hx Congestive Heart Failure: No Hx Rheumatic Fever: No Hx Hypertension: Yes - FEW YRS AGO, NO MEDS PRESENTLY Hx Internal Defibrillator: No Hx Pacemaker: No Hx Cardiac Catheterization: No Hx Cardiac Surgery/Stents/Etc.: No Hx Stress Test: No HX Edema: No Hx Pain in Legs when Walking/Leg Cramps: No - Respiratory Chronic Cough: No HX of Shortness of Breath: No Hoarseness: No Hx Chronic Obstructive Pulmonary Disease (COPD): No Hx Asthma: No Hx Emphysema: No Hx Sleep Apnea: No Hx Oxygen Use at Home: No Hx Respiratory Tract Infection/Cold (presently): No Do You Snore Loudly (louder than talking or can be heard): Yes Do You Often Feel Tired/ Fatigued/ Sleepy Dring Daytime?: No Has Anyone Observed You Stop Breathing During Sleep?: No Result (for STOP score): Positive Hx Smoking: Yes Smoking Status: Former smoker - Gastrointestinal Hx Gastroesophageal Reflux: Yes Controlled With Meds: No - PRN Hx Gastrointestinal Disorders: No Hx Gastrointestinal Bleed: No Hx Ulcer: No Hx Hiatal Hernia: No Difficulty Chewing/Swallowing: No Recent Onset of Swallowing Problems: No Special diet followed at home: No Hx Unplanned Weight Loss of 20#: No HX Unplanned Weight Gain of 20#: No - Neurological Hx Seizures: No HX Syncope/Blackout Spells/Unconsciousness: No Hx CVA/Stroke: No Hx Transient Ischemic Attacks (TIA): No Hx Multiple Sclerosis: No Hx Parkinson's Disease: No Hx Head/Neck Injury: No Hx Headaches: No Hx Back Injury/Pain: No Recent Onset of Speech Difficulty: No Restless Legs: No Does patient have nerve stimulator: No - Blood Disorder Hx Leukemia: No Bleeding Tendencies: No Hx Deep Vein Thrombosis: No Hx High Cholesterol: No Blood Transmitted Disease: No Hx Hepatitis: No Hx Cirrhosis: No Hx Anemia: No Hx Blood Disorders: No - Reproduction : No Is Patient Lactating: No Hx Hysterectomy: No Hx Tubal Ligation: No Are You Post Menopause: Yes - Genitourinary Hx Renal Disease: No - Musculoskeletal Hx Arthritis: No Hx Rheumatoid Arthritis: No Hx Gout: No Recent Onset of an Orthopedic Problem: No - Endocrine Hx Diabetes: No Thyroid Disease: No Hx Steroid Therapy: No - Psycho/Social Hx Substance Use: No Hx Alcohol Use: Yes - SOCIAL Hx Anxiety: No Hx Depression: No Mental Illness: No Hx Dementia: No - Miscellaneous Hx Cancer: No Recent Exposure to Contagious Disease: No Active MRSA: No Hx of C-Diff: No Any Loose Teeth: No Allergies acetaminophen [From Vicodin] Allergy (Verified 08/03/19 07:19) Vomiting hydrocodone [From Vicodin] Allergy (Verified 08/03/19 07:19) Vomiting oxycodone Allergy (Verified 08/03/19 07:19) PT UNSURE OF REACTION HALLUCINATIONS codeine Adverse Reaction (Verified 08/03/19 07:19) Nausea - Discharge Is Pt Admitted From a Intermediate, or a Alf: No Who Could Help: After D/C, Where Do you Plan to Go: Return Home - Physical Exam Vitals/I&O's: Vital Signs Temp Pulse Resp BP Pulse Ox 97.5 F L 86 16 158/89 H 100 08/03/19 07:21 08/03/19 07:21 08/03/19 07:21 08/03/19 07:21 08/03/19 07:21 Oxygen Delivery Method Room Air Weight: 167 lb 8.821 oz Body Mass Index (BMI) 28.8 General: Alert, Oriented x3 Neck: No JVD Lungs: Normal air movement Cardiovascular: Regular rate, Regular Rhythm Abdomen: Soft, Non Tender, Non-Distended Microbiology Past 72 Hours 08/02/19 09:00 Mucosa - Nasopharyngeal Coronavirus COVID-19 PCR - Final Laboratory Results 08/03/19 07:55: COVID-19 (COTY) Cancelled Current Medications Lactated Ringer's () 1,000 mls @ 100 mls/hr IV .Q10H CHANDAN Last Admin: 08/03/19 07:28 Dose: 100 mls/hr Documented by: Assessment/Plan 58-year-old female screening for colon cancer I explained endoscopy in detail to the patient. I explained the risks including but not limited to stroke or heart attack with anesthesia, perforation of the GI tract, bleeding, infection. I explained that any of these could necessitate further emergency surgery. The patient understands and all questions were answered sufficiently. The patient wishes to proceed with procedure. We discussed the current risks associated with COVID-19. While it is understood that there is a community spread of COVID-19, the risk of zurdo COVID-19 while at [facility] ([facility]) is very low; however, the risk cannot be completely mitigated because of the community spread of the disease. We discussed in detail the risk of exposure to and/or potential harm posed by the COVID-19 virus with having a surgery/procedure at this time versus the risk of delaying the surgery/procedure. It is not possible to know either the risk of delaying the surgery or procedure or chance of getting an infection with perfect accuracy, but a joint decision was made to proceed at this time with the scheduled surgery/procedure as indicated on the consent form. Patient was notified that we will need to comply with any screening or testing [facility] wishes to perform or that surgery may be delayed for any positive results. Emerson Ritter MD Pager: [facility] [address] [place] [address] [address] [place] [address] Office: Surgery Risks - Colonoscopy Risks Include but are not Limited To: Risks include but are not limited to: Bleeding, perforation requiring further surgery, inability to complete colonoscopy requiring barium enema.
[2019-08-03 08:16] VITALS: BP 123/71; BP 158/89; PULSE 81; RESP 16; TEMP 36.1; O2SAT 98
[2019-08-03 08:20] VITALS: BP 117/77; BP 158/89; PULSE 78; RESP 16; O2SAT 97
--- NOTE | 2019-08-03 08:20 | OP.CCLET_ITS ---
08/03/2019 Jarocho Foster [address] [place] [address] Re : Colonoscopy procedure for Gaby Davidson Dear Dr. Foster This procedure was performed on Saturday, August 03, 2019. My impressions and recommendations are as follows: Impressions : - The entire examined colon is normal on direct and retroflexion views. - No specimens collected. Recommendations : - Discharge patient to home. - Resume previous diet. - Continue present medications. - Repeat colonoscopy in 10 years for screening purposes. My findings are described in the full procedure note, which is enclosed. If I can be of further assistance, please feel free to contact me at Doctor phone number(s): , Work: . Sincerely, Emerson Ritter MD 08/03/2019 8:20:04 AM This report has been signed electronically.
--- NOTE | 2019-08-03 08:20 | OP.COLON_ITS ---
Patient Name: Gaby Davidson Procedure Date: 08/03/2019 7:01 AM Date of : 1960 Age: 58 Procedure: Colonoscopy Indications: Screening for colorectal malignant neoplasm Providers: Emerson Ritter MD Referring MD: Jarocho Foster Medicines: Monitored Anesthesia Care Patient Profile: This is a 58 year old female. Refer to note in patient chart for documentation of history and physical. Last Colonoscopy: none. The patient's first colonoscopy is today. Complications: No immediate complications. Estimated blood loss: None. Procedure: Pre-Anesthesia Assessment: - Prior to the procedure, a History and Physical was performed, and patient medications and allergies were reviewed. The patient's tolerance of previous anesthesia was also reviewed. The risks and benefits of the procedure and the sedation options and risks were discussed with the patient. All questions were answered, and informed consent was obtained. Prior Anticoagulants: The patient has taken no previous anticoagulant or antiplatelet agents. After reviewing the risks and benefits, the patient was deemed in satisfactory condition to undergo the procedure. After I obtained informed consent, the scope was passed under direct vision. Throughout the procedure, the patient's blood pressure, pulse, and oxygen saturations were monitored continuously. The colonoscope was introduced through the anus and advanced to the cecum, identified by appendiceal orifice and ileocecal valve. The colonoscopy was performed without difficulty. The patient tolerated the procedure well. The quality of the bowel preparation was good. Scope In: 8:01:54 AM Scope Withdrawal Time 0 hours 6 minutes 6 seconds Scope Out: 8:12:30 AM Total Procedure Duration Time 0 hours 10 minutes 36 seconds Findings: The entire examined colon appeared normal on direct and retroflexion views. Impression: - The entire examined colon is normal on direct and retroflexion views. - No specimens collected. Recommendation: - Discharge patient to home. - Resume previous diet. - Continue present medications. - Repeat colonoscopy in 10 years for screening purposes. Procedure Code(s): --- Professional --- 60094, Colonoscopy, flexible; diagnostic, including collection of specimen(s) by brushing or washing, when performed (separate procedure) Diagnosis Code(s): --- Professional --- Z12.11, Encounter for screening for malignant neoplasm of colon CPT copyright 2017 [employer]. All rights reserved. The codes documented in this report are preliminary and upon radiation control technician review may be revised to meet current compliance requirements. Emerson Ritter MD 08/03/2019 8:20:04 AM This report has been signed electronically. Number of Addenda: 0 Note Initiated On: 08/03/2019 7:01 AM
[2019-08-03 08:25] VITALS: BP 117/80; BP 158/89; PULSE 74; RESP 16; O2SAT 99
[2019-08-03 08:30] VITALS: BP 119/89; BP 158/89; PULSE 75; RESP 16; TEMP 36.2; O2SAT 97
[2019-08-03 08:53] VITALS: BP 158/89
== END 2019-08-03 08:55 | disposition home or self-care (01) ==
LOC: EN 06:58 → AC 06:58
PROVIDERS: Surgery; PCP Family Medicine; Referring Provider Family Medicine; Visit Provider Surgery
PROC: 0DJD8ZZ Inspection of Lower Intestinal Tract, Via Natural or Artificial Opening Endoscopic (ICD-10-PCS; CPT 45378; principal; 2019-08-03 07:55)
DX: Z12.11 Encounter for screening for malignant neoplasm of colon (principal); Z87.891 Personal history of nicotine dependence; K21.9 Gastro-esophageal reflux disease without esophagitis; Z86.79 Personal history of other diseases of the circulatory system; Z11.59 Encounter for screening for other viral diseases
CPT/HCPCS: 45378; 87635; G2023; J7120; J2405; U0004

== ENCOUNTER → 2019-10-03 10:10 | Outpatient (CLI) | payer BC, SELFPAY ==
--- NOTE | 2019-10-03 10:23 | MRI_ITS ---
STUDY: MRI LUMBAR SPINE WITHOUT CONTRAST REASON FOR EXAM: Female, 59 years old. STENOSIS, tingling around waist into hips TECHNIQUE: Standardized fat and water weighted pulse sequences were obtained in the sagittal and axial planes. COMPARISON: 05/17/2018 FINDINGS: Lumbar lordosis preserved. No significant scoliosis. Conus medullaris terminates normally at the L1 level. No acute fracture. No acute dislocation. Sacral Tarlov cysts. Paraspinal muscle atrophy. Sacrum intact. Normal aorta. Normal retroperitoneum. Last intervertebral disc will be labeled L5-S1 for the purposes of this examination. T12-L1: Normal endplates. Normal disc height, hydration and morphology. Normal bilateral facet joints. Normal central canal and bilateral lateral recesses. Normal bilateral intervertebral neural foramina. L1-2: Mild endplate spondylosis. Shallow disc bulge. Normal bilateral facet joints. Normal central canal and bilateral lateral recesses. Normal bilateral intervertebral neural foramina. L2-3: Mild endplate spondylosis. Right paracentral disc protrusion, annular fissure, with mild central canal narrowing. Facet joint arthrosis. Normal bilateral lateral recesses. Neural foraminal narrowing without impingement. L3-4: Mild endplate spondylosis. Disc bulge with mild central canal narrowing. Facet joint arthrosis. Normal bilateral lateral recesses. Neural foraminal narrowing without impingement. L4-5: Mild endplate spondylosis. Disc bulge, annular fissure, with mild central canal narrowing. Facet joint arthrosis. Normal bilateral lateral recesses. Neural foraminal narrowing without impingement. L5-S1: Normal endplates. Normal disc height, hydration and morphology. Normal bilateral facet joints. Normal central canal and bilateral lateral recesses. Normal bilateral intervertebral neural foramina. MRI/Spine Lumbar (Routine) IMPRESSION: Multilevel intervertebral disc disease with mild central canal narrowing at the L2-3, L3-4 and L4-5 levels (new annular fissures from prior exam) Multilevel stable neural foraminal narrowing without impingement Multilevel stable facet arthrosis Electronically Signed: Guanakito Rogers DO at 11:23 EDT Tel , Service support ,
== END ==
PROVIDERS: PCP Family Medicine; Referring Provider Family Medicine; Visit Provider Family Medicine
DX: M48.061 Spinal stenosis, lumbar region without neurogenic claudication (principal); M51.16 Intervertebral disc disorders with radiculopathy, lumbar region; M51.36 Other intervertebral disc degeneration, lumbar region
CPT/HCPCS: 72148

== ENCOUNTER 2019-12-17 04:52 | Emergency (ER) | payer BC, SELFPAY ==
[2019-12-17 04:52] VITALS: BP 153/83; PULSE 94; RESP 15; TEMP 37.1; O2SAT 98; BMI 32.3
--- NOTE | 2019-12-17 05:14 | CT_ITS ---
STUDY: CT ABDOMEN AND PELVIS WITHOUT CONTRAST REASON FOR EXAM: Female, 59 years old. PELVIC AND RT HIP PAIN. NKI. RADIATION DOSAGE (If Supplied By Facility): CTDIvol = ( 8.14 ) mGy, DLP = ( 433.39 ) mGycm TECHNIQUE: Transaxial images were obtained from the dome of the diaphragm to the symphysis pubis without oral contrast, and without intravenous contrast. Sagittal and coronal images were reconstructed. Individualized dose optimization techniques were used for this CT. COMPARISON: None. FINDINGS: The visualized lung bases are unremarkable. The visualized portions of the heart are within normal limits. Normal liver. Normal gallbladder and extrahepatic biliary system. Normal spleen. Normal pancreas. Normal bilateral adrenal glands. The right-sided peripelvic cysts. Normal left kidney. There is a small hiatal hernia. Normal small intestine. There is moderate stool in the colon from the cecum to the rectum. The appendix is visualized and appears normal. Normal abdominal aorta. Normal inferior vena cava. Normal retroperitoneum. Normal urinary bladder. Normal visualized uterus. There is a minimal umbilical hernia containing fat. There are mild degenerative changes of the visualized lumbar spine. There is degenerative change in the SI joints. There is degenerative change L3-4 disc space narrowing and broad disc bulge and moderate neural foraminal narrowing and mild central stenosis. There is minimal degenerative change of the hip joints without visualized fracture. CT/Abdomen/Pelvis without Cont IMPRESSION: No visualized renal ureteral bladder calculi. Constipation. No evidence of appendicitis. There is a small hiatal hernia. Mild degenerative change in the thoracolumbar spine most significant at L3-L4 there is disc space narrowing broad disc bulge and mild to moderate neural foramina narrowing mild to moderate central stenosis.. Electronically Signed: Kylah Gómez MD at 5:54 EDT Tel , Service support ,
[2019-12-17] MEDS: Ondansetron 4 MG/2 ML Vial IV (05:20)
[2019-12-17] MEDS: Morphine 4 MG/ML Syringe IV (05:25)
[2019-12-17 05:34] LABS: Absolute Lymphocyte Count 2.01 X10^3/uL (0.83-4.51); Absolute Neutrophil Count 2.4 X10^3/uL (2.0-7.7); Basophil# 0.03 X10^3/uL; Basophil% 0.6 % (0-1); Eosinophil# 0.12 X10^3/uL; Eosinophils% 2.4 % (0-5); Hematocrit 41.8 % (37-47); Lymphocyte # 2.01 X10^3/ul (4.0); Lymphocyte % 39.5 % (19-41); Mean Corp Hgb Conc 33.5 g/dL (32-36); Mean Corpuscular Hgb 31.1 pg (27.0-32.0); Mean Corpuscular Volume 92.9 fL (81-99); Mean Platelet Vol. 9.8 fl (6.2-12.0); Monocyte# 0.55 X10^3/uL; Monocyte% 10.8 % (0-10); NRBC Flagged by Analyzer 0 % (0-5); Neutrophil # 2.37 X10^3/uL (2.7-7.7); Neutrophil % 46.5 % (47-70); Platelet Count 300 K/mm3 (150-450); RBC Distribution Width CV 11.9 % (11.6-14.6); RBC Distribution Width SD 40.4 fl (35.1-43.9); White Blood Count 5.1 K/mm3 (4.4-11.0)
--- NOTE | 2019-12-17 05:53 | ED.DCSUM_ITS ---
- ER Visit Summary Date of Service: 12/17/19 Chief Complaint: Right hip pain History of Present Illness: The patient is a [address] Foster. She reports that she has chronic right hip pain that increased 3 days ago. She points to her right buttock is the location of this. She describes a sharp pain is 10 of 10 in severity. It is worsened by standing up. She taken Advil without relief. States that prior to 3 days ago the pain was relieved with laying down. It is no longer relieved with this. She denies any trauma. No fall, MVA, or change in activity. Patient ports that she had an MRI of her lower back a few months ago did not show a reason for this. She had a right hip labral repair last year by [facility]. She does not remember the doctor's name. She went to physical therapy after this and reports that it did seem to improve at that time. But it is now returned and worsened. She went to physical therapy for this again in July and did not have relief and stopped going. She has seen pain management and it sounds as though she has had 2 epidural injections without relief. Review of systems: General: No fever, chills, cold sweats. Cardiovascular: No chest pain, palpitations. Respiratory: No cough, shortness of breath, dyspnea on exertion. Gastrointestinal: No abdominal pain, nausea, vomiting, diarrhea, melena, or hematochezia. Genitourinary: No dysuria, frequency, hematuria. Skin: No rash. Neuro: No headache, numbness, weakness. Physical Examination: Vitals: Stable. Afebrile. General: A&O x 3. NAD. Cardiovascular exam: Regular rate and rhythm, no murmur, rub or gallop. Respiratory exam: Clear to auscultation bilaterally. No wheezes or stridor. Abdominal exam: Soft, nontender, nondistended, normal bowel sounds. No peritoneal signs. Back: Mild tenderness palpation in the right buttock and right sciatic notch. Negative straight leg bilaterally. 5/5 DF, PF, EHL bilaterally. Normal sensation to light touch throughout. Extremity: No clubbing, cyanosis, or edema. Test Results: CBC shows segmented neutrophil 87 and monocytes of 11. Chem-7 is normal. Clinical Impression(s) from Imaging Studies Abdomen/Pelvis CT 12/17/19 05:14 IMPRESSION: No visualized renal ureteral bladder calculi. Constipation. No evidence of appendicitis. There is a small hiatal hernia. Mild degenerative change in the thoracolumbar spine most significant at L3-L4 there is disc space narrowing broad disc bulge and mild to moderate neural foramina narrowing mild to moderate central stenosis.. Electronically Signed: Kylah Gómez MD at 5:54 EDT Tel , Service support , I did review the lumbar spine MRI on October 03, 2019. This shows multilevel intervertebral disc disease with mild central canal narrowing at the L2-3, L3-4 and L4-5 levels (new annular fissures from prior exam) Multilevel stable neural foraminal narrowing without impingement Multilevel stable facet arthrosis Emergency Department Course and Treatment: Patient had an IV placed. She was given morphine and Zofran IV. She is resting more comfortably. Treatment Plan: Given the CT findings of degeneration of her SI joints I suspect that this is actually the source of her pain. The location of her pain is not typical of hip. This does not seem to be bursitis. She does not have radicular pain to suggest a disc problem. She does not have pain radiating down the back of her leg to suggest sciatica. I had a prolonged discussion with the patient and her regarding this. Patient will be discharged with MSIR, Colace, and prednisone. I have discussed with her the need to go to physical therapy and likely to see a disability benefits specialist to make sure she does not have a limb length discrepancy or need orthotics. She is instructed to follow-up with her primary care physician in 3 to 5 days for another exam. Return to the emergency department for any worsening symptoms. Disposition: To home in improved and stable condition. Impression: 1. Sacroiliac joint arthritis. This note was generated with [employer] dictation software. It may contain incorrect words, spelling, and punctuation that were not noted in review of the chart prior to signing ED Disposition - Plan for ED Patient: Instructions: ED Sacroiliitis Prescriptions: Docusate Sodium [Colace] 100 mg PO DAILY #20 capsule Prednisone [Deltasone] 40 mg PO DAILY #10 tablet Morphine Sulfate 15 mg PO 4X/DAY PRN 3 Days #10 tablet PRN Reason: Pain Score 6-10 Ondansetron [Zofran Odt] 4 mg PO Q8H PRN PRN #10 tablet PRN Reason: Nausea Referrals: Jarocho Foster DO [Primary Care Provider] - 3-5 Days if not improving Dorene Jhaveri DPM [STAFF PHYSICIAN] - 1-2 Weeks
[2019-12-17 05:56] LABS: Anion Gap 5 (5-15); BUN 14 mg/dL (7-18); BUN/Creat Ratio 15.9 RATIO (10-20); Calcium,Total 9.4 mg/dL (8.5-10.1); Chloride 107 mmol/L (98-107); Creatinine, Serum 0.88 mg/dL (0.55-1.02); EST Glomerular Filtration Rate 70 mL/min (>60); Est Glom Filt Rate - Afr Amer 84 mL/min (>60); Estimated Creatinine Clearance 51.94 ml/min; Glucose 93 mg/dL (74-106); Potassium 3.5 mmol/L (3.5-5.1); Sodium Level 140 mmol/L (136-145)
[2019-12-17 06:02] VITALS: BP 146/83; PULSE 81; RESP 15; O2SAT 96
[2019-12-17] MEDS: predniSONE 20 MG Tablet 60 MG PO (06:32)
--- NOTE | 2019-12-17 06:40 | ED.RN ---
wasted 4 mg iv morphine with rosalba thomas. original dose was 8 mg im. order was changed to [address] zuñiga. had already withdrawn 8 mg morphine so wasted 4 mg & verified with rosalba thomas rn.
== END 2019-12-17 06:41 | disposition home or self-care (01) ==
LOC: ED 05:10
PROVIDERS: Emergency Provider Emergency Medicine; PCP Family Medicine
DX: M46.1 Sacroiliitis, not elsewhere classified (principal)
CPT/HCPCS: 74176; 80048; 85025; 96374; 96375; 99281; 99283; J2405

== ENCOUNTER → 2020-02-28 07:02 | Outpatient (CLI) | payer BC, SELFPAY ==
[2020-01-22 09:42] VITALS: BMI 31.4
--- NOTE | 2020-02-28 07:03 | BI_ITS ---
MAMMOGRAPHY - BILATERAL SCREENING REASON FOR EXAM: Female, 59 years old. Routine annual screening examination. PERTINENT HISTORY: Non-contributory. TECHNIQUE: Digital bilateral breast javid (3D mammographic acquisition) in the CC and MLO projections. 2-D mediolateral oblique (MLO) and craniocaudad (CC) views of both breasts were obtained. CAD: Full Field Digital Mammography with Computer Added Detection was performed. COMPARISON: Comparison is made with prior study dated 05/01/2018 and 07/10/2012. FINDINGS: Breast Composition: There are scattered areas of fibroglandular density. There are no dominant masses or suspicious calcifications. No other significant abnormalities are identified. There has been no significant change since the prior study. BI/SCREEN MAMM (CAD) W/JAVID BILAT IMPRESSION: Stable bilateral screening mammogram. Yearly follow-up mammogram recommended. (A) ASSESSMENT CATEGORY: BIRADS Category 1: Negative. A letter regarding these results will be sent to the patient by the facility within 30 days. Approximately 10% of breast cancers are not detected by mammography. A normal mammogram should not delay biopsy of a clinically suspicious abnormality. [id number] Electronically Signed: Basilio Perdue, at 9:17 EST , Service support ,
== END ==
PROVIDERS: PCP Family Medicine; Referring Provider Obstetrics & Gynecology; Visit Provider Obstetrics & Gynecology
DX: Z12.31 Encounter for screening mammogram for malignant neoplasm of breast (principal)
CPT/HCPCS: 77063; 77067

== ENCOUNTER → 2020-03-05 07:02 | Outpatient (CLI) | payer BC, SELFPAY ==
[2020-01-22 09:42] VITALS: BMI 31.4
[2020-03-05 10:55] LABS: Cholesterol 268 mg/dL (200); High Density Lipoprotein 43 mg/dL; Triglycerides 176 mg/dL; Very Low Density Lipoprotein 35 mg/dL (5-40)
== END ==
PROVIDERS: PCP Family Medicine; Referring Provider Family Medicine; Visit Provider Family Medicine
DX: Z00.00 Encounter for general adult medical examination without abnormal findings (principal); E55.9 Vitamin D deficiency, unspecified
CPT/HCPCS: 36415; 80061; 82306

== ENCOUNTER → 2020-03-31 10:48 | Outpatient (CLI) | payer BC, SELFPAY ==
[2020-01-22 09:42] VITALS: BMI 31.4
[2020-04-03 13:14] LABS: HPV APTIMA, High Risk Negative (Negative)
== END ==
PROVIDERS: PCP Family Medicine; Visit Provider Obstetrics & Gynecology
DX: Z12.4 Encounter for screening for malignant neoplasm of cervix (principal)
CPT/HCPCS: 87624; 88175; G0145

== ENCOUNTER 2021-03-12 18:00 | Outpatient (CLI) | payer BC, SELFPAY | END 2021-03-12 23:59 | disposition short-term general hospital (02) | LOC: LABSPEC 03-13 09:07 | PROVIDERS: PCP Family Medicine; Visit Provider Family Medicine | DX: U07.1 COVID-19 (principal) | CPT/HCPCS: 87635; U0003; U0005 ==

== ENCOUNTER 2021-03-26 07:03 | Outpatient (CLI) | payer BC, SELFPAY ==
[2021-03-26 10:38] LABS: ALB/GLOB Ratio 0.8 RATIO (0.9-2.4); AST(SGOT) 17 U/L (15-37); Alanine Aminotransfer ALT/SGPT 32 U/L (13-56); Albumin, Serum 3.3 g/dL (3.2-5.0); Alkaline Phosphatase 65 U/L (45-117); Anion Gap 3 (5-15); BUN 14 mg/dL (7-18); BUN/Creat Ratio 17.7 RATIO (10-20); Calcium,Total 8.9 mg/dL (8.5-10.1); Chloride 111 mmol/L (98-107); Cholesterol 254 mg/dL (200); Creatinine, Serum 0.79 mg/dL (0.55-1.02); EST Glomerular Filtration Rate 79 mL/min (>60); Est Glom Filt Rate - Afr Amer 95 mL/min (>60); Glucose 93 mg/dL (74-106); High Density Lipoprotein 40 mg/dL; Potassium 3.9 mmol/L (3.5-5.1); Protein, Total 7.3 g/dL (6.4-8.2); Sodium Level 142 mmol/L (136-145); Triglycerides 137 mg/dL; Very Low Density Lipoprotein 27 mg/dL (5-40)
== END 2021-03-26 23:59 | disposition short-term general hospital (02) ==
LOC: MTLAB 07:04
PROVIDERS: PCP Family Medicine; Referring Provider Family Medicine; Visit Provider Family Medicine
DX: Z00.00 Encounter for general adult medical examination without abnormal findings (principal)
CPT/HCPCS: 36415; 80053; 80061

== ENCOUNTER → 2022-04-23 | Outpatient (CLI) | payer BC, SELFPAY ==
[2022-04-23 12:42] LABS: ALB/GLOB Ratio 1.1 RATIO (0.9-2.4); AST(SGOT) 35 U/L (15-37); Alanine Aminotransfer ALT/SGPT 40 U/L (13-56); Alkaline Phosphatase 78 U/L (45-117); Anion Gap 6 (5-15); BUN 21 mg/dL (7-18); BUN/Creat Ratio 27.1 RATIO (10-20); Chloride 108 mmol/L (98-107); Cholesterol 256 mg/dL (200); Creatinine, Serum 0.78 mg/dL (0.55-1.02); EST Glomerular Filtration Rate 80 mL/min (>60); Est Glom Filt Rate - Afr Amer 97 mL/min (>60); Globulin 3.8 g/dL (2.2-4.2); Glucose 105 mg/dL (74-106); High Density Lipoprotein 43 mg/dL; Protein, Total 7.8 g/dL (6.4-8.2); Sodium Level 140 mmol/L (136-145); Triglycerides 165 mg/dL; Very Low Density Lipoprotein 33 mg/dL (5-40)
[2022-04-23 12:44] LABS: Absolute Lymphocyte Count 2.24 X10^3/uL (0.83-4.51); Basophil# 0.05 X10^3/uL; Eosinophil# 0.19 X10^3/uL; Eosinophils% 3.8 % (0-5); Hematocrit 42.3 % (37-47); Hemoglobin 14.1 g/dL (12.0-15.0); Lymphocyte # 2.24 X10^3/ul (0.83-4.51); Lymphocyte % 44.9 % (19-41); Mean Corp Hgb Conc 33.3 g/dL (32-36); Mean Corpuscular Hgb 30.7 pg (27.0-32.0); Mean Platelet Vol. 10.2 fl (6.2-12.0); NRBC Flagged by Analyzer 0 % (0-5); Neutrophil % 40.1 % (47-70); Platelet Count 291 K/mm3 (150-450); RBC Distribution Width SD 40.5 fl (35.1-43.9)
== END | disposition home or self-care (01) ==
LOC: BFHLAB 09:57
PROVIDERS: PCP Family Medicine; Visit Provider Family Medicine
DX: Z00.00 Encounter for general adult medical examination without abnormal findings (principal)
CPT/HCPCS: 36415; 80053; 80061; 85025

== ENCOUNTER → 2022-05-03 | Outpatient (CLI) | payer BC, SELFPAY ==
--- NOTE | 2022-05-03 12:22 | BI_ITS ---
MAMMOGRAPHY - BILATERAL SCREENING REASON FOR EXAM: Female, 61 years old. Routine annual screening examination. PERTINENT HISTORY: Non-contributory. TECHNIQUE: Digital bilateral breast javid (3D mammographic acquisition) in the CC and MLO projections. 2-D mediolateral oblique (MLO) and craniocaudad (CC) views of both breasts were obtained. CAD: Full Field Digital Mammography with Computer Added Detection was performed. COMPARISON: Comparison is made with prior study 02/28/2020 and 05/01/2018. FINDINGS: Breast Composition: There are scattered areas of fibroglandular density. There are no dominant masses or suspicious calcifications. Stable small benign-appearing bilateral axillary lymph nodes. No other significant abnormalities are identified. There has been no significant change since the prior study. BI/SCRN MAMM (CAD)W/JAVID BILAT IMPRESSION: Stable bilateral screening mammogram. Yearly follow-up mammogram recommended. (A) ASSESSMENT CATEGORY: BIRADS Category 2: Benign. A letter regarding these results will be sent to the patient by the facility within 30 days. Approximately 10% of breast cancers are not detected by mammography. A normal mammogram should not delay biopsy of a clinically suspicious abnormality. [id number] Electronically Signed: Basilio Perdue MD at 14:13 EST ,
== END | disposition home or self-care (01) ==
LOC: OPBI 12:20
PROVIDERS: PCP Family Medicine; Visit Provider Family Medicine
DX: Z12.31 Encounter for screening mammogram for malignant neoplasm of breast (principal)
CPT/HCPCS: 77063; 77067

== ENCOUNTER → 2022-10-11 | Outpatient (CLI) | payer BC, SELFPAY ==
--- NOTE | 2022-10-11 09:04 | RAD_ITS ---
INDICATION: Pain for 3 weeks, no history of injury. EXAMINATION/TECHNIQUE: X-RAY - RIGHT XR Wrist Min 3 Views 3 VIEWS COMPARISON: No prior examinations are available for comparison. FINDINGS: SOFT TISSUES: Faint small soft tissue calcification on the dorsal aspect of the wrist in the region of the triquetrum. No radiopaque foreign body. BONES/JOINTS: No acute fracture or subluxation.. Normal alignment. Preservation of the joint space.. No sclerotic or destructive changes observed. RAD/Wrist min 3 Views IMPRESSION: 1. Small soft tissue calcification could be due to previous injury. 2. Otherwise unremarkable examination. Electronically Signed: Hector Melara MD at 11:24 EDT ,
--- NOTE | 2022-10-11 09:04 | RAD_ITS ---
INDICATION: PAIN EXAMINATION/TECHNIQUE: X-RAY - LEFT XR Shoulder Min 2 Views 4 VIEWS COMPARISON: No prior examinations are available for comparison. FINDINGS: SOFT TISSUES: Soft tissue calcification lateral to the humeral head consistent with calcific tendinitis. No radiopaque foreign body. BONES/JOINTS: No acute fracture or subluxation.. Normal alignment. Preservation of the joint space.. No sclerotic or destructive changes observed. RAD/Shoulder min 2 Views IMPRESSION: Calcific tendinitis of the left shoulder. Electronically Signed: Hector Melara MD at 11:15 EDT ,
--- NOTE | 2022-10-11 09:04 | RAD_ITS ---
INDICATION: PAIN EXAMINATION/TECHNIQUE: X-RAY - RIGHT XR Shoulder Min 2 Views 4 VIEWS COMPARISON: No prior examinations are available for comparison. FINDINGS: SOFT TISSUES: No soft tissue swelling or gas. No radiopaque foreign body. BONES/JOINTS: No acute fracture or subluxation.. Normal alignment. Preservation of the joint space.. Minimal subchondral cystic changes of the greater tuberosity. RAD/Shoulder min 2 Views IMPRESSION: No significant abnormality is seen. Electronically Signed: Hector Melara MD at 11:22 EDT ,
== END | disposition home or self-care (01) ==
LOC: MTRAD 09:02
PROVIDERS: PCP Family Medicine; Referring Provider Nurse Practitioner Family; Visit Provider Nurse Practitioner Family
DX: M25.511 Pain in right shoulder (principal); M25.512 Pain in left shoulder; M25.531 Pain in right wrist
CPT/HCPCS: 73030; 73110

== ENCOUNTER 2024-01-13 07:00 | Outpatient (RCR) | payer BC, SELFPAY ==
--- NOTE | 2023-12-22 11:06 | HP.PTEVAL_ITS ---
Patient's Visit Information Visit Information Visit Information: NNEKA WALL is a 63 year old F referred to Physical Therapy by ABRAHAM ELLSWORTH with a diagnosis of R ischial bursitis, s/p Jet procedure 12/07. Date of Evaluation: 12/22/23 Physical Therapist: Guanakito Craig, DPT, OCS, CSCS Visit Plan Frequency: 3x /Week Duration: 4-6 Weeks Plan: 3x/week for 3-6m weeks IE: HEP of pirifomris and HS stretch supine and prone quad stretch 30 5x and prone hip ROM 20x all 2x/day. Treat with progression of HS isometrics until end december, then isotonics to hip early January and heavy load in mid January. Also teach general core mat strength and back ROM/yoga for HEP and machine based core and general program to I. may use rollout to HS and priformis to help with mobility. Subjective Subjective: Had procedure at [facility] due to pain in R buttock long teerm. [place] good for a number of days. now gets hot back there. Was painful for years prior to procedure. Had many MRIs and no relief. US showed bursitis in ishcial area, Did TENjet procedure, 12/08/23. 3 days relief then now gets different bruning pain. Can be electric shock in legs in am. Some anterior abdomen pain which she had a little bit of prior. Has some R groin pain. It is constant except when lying down. Walking is better than standing or sitting. Has been resting since procedure. No regular exercises normally. H/o back pain with some historical ex classes. 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 Avoids sitting on R hip. That pain is better than prior to procedure but not gone. Basic ADLs all getting done. Doesn't have a lot of energy. Hobbies: cook and clean , is doing them without a good comfort level, Has to take a break every 30 minutes to lie down. Pain trunk: Pain Intensity (Out of 10): 0 Pain Intensity Range: 0 and 5 Objective Objective: Walks into PT I with intermittent slight R antalgia, trasnfers bed and chair I, steps reciprocal with one rail, some pain in R HS origin. Sits ky rly symmetrical today with intermittent offloading of R ishial area, LB AROM WFL and without pain. HIP knee and ankle aROM WFL [id number] for R hip ext slightly painful, and er painful in groin at times, - FADDIr, - DEYANIRA. - slump test, - SLR Tenderness obvious in ishial area of R HS origin and HS tight on that side with discomfort at -20 90/90 test. Also slightly with priifromis streetch. reflexes 1/3 patella adn achilles B Sensation LE WNL to gross light touch. strength hip rotations 3+ B, abduction 3+ with some R sided pain, ext 3 R and 3+ Lm Pain in R HS origin. knee flexiona dn ext 4/5, ankles 4/5, no pain. trunk strength 3+ in abs and ext without pain. Balance/Special Test Scores Lower Extremity Functional Score: 49 Goals Goal 1:: Patient improved hip pain to 2/10 at worst and 75% better Goal Time Frame: 4-6 Weeks Goal 2:: I appropriate core adn hip strength and ROM to limit future problems Goal Time Frame: 4-6 Weeks Goal 3:: LEFS 59 Goal Time Frame: 4-6 Weeks Goal 4:: Sit in chair 60 minutes without needing to get up and move or lie down. 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 Rehabilitation Potential: Fair Anticipated Interventions Patient/Client Instruction: Educate patient on: Condition and Plan of Care For the Purpose of:: To decrease pain, To increase ROM, To improve nutrient delivery to tissue, To improve muscle performance and motor function and To improve gait and locomotor functions Therapeutic Exercise to Include: Strength training, Flexibilty training, Passive ROM, Active ROM and Dynamic Lumbar Stabilization For the Purpose of:: To decrease pain, To increase ROM and To improve nutrient delivery to tissue Manual Therapy Techniques to Include: Mobilization and Soft tissue mobilization For the Purpose of:: To decrease pain, To increase ROM, To improve nutrient delivery to tissue and To increase oxygenation perfusion Thermo therapy (hot pack): Yes For the Purpose of:: To decrease pain, To increase ROM and To improve nutrient delivery to tissue Text: Thank you for the opportunity to evaluate your patient. For Medicare and Medicare HMO plans, please review the plan of care and approve it. It will need to be FAXED BACK to us at [phone] for Medicare purposes. For Medicare only, by signing this I certify the plan of care. Please let me know if there are questions or concerns regarding this plan of care. Physician Signature: Date:
--- NOTE | 2024-03-23 12:45 | HP.PT.NRP ---
Patient Information Patient Information: NNEKA WALL was seen in my office for initial evaluation on 12/22/23. The following Plan of Care was established for this patient: POC Established Initial Frequency: 3x /Week Initial Duration: 4-6 Weeks Anticipated Interventions Patient/Client Instruction: Educate patient on: Condition and Plan of Care For the Purpose of:: To decrease pain, To increase ROM, To improve nutrient delivery to tissue, To improve muscle performance and motor function and To improve gait and locomotor functions Therapeutic Exercise to Include: Strength training, Flexibilty training, Passive ROM, Active ROM and Dynamic Lumbar Stabilization For the Purpose of:: To decrease pain, To increase ROM and To improve nutrient delivery to tissue Manual Therapy Techniques to Include: Mobilization and Soft tissue mobilization For the Purpose of:: To decrease pain, To increase ROM, To improve nutrient delivery to tissue and To increase oxygenation perfusion Thermo therapy (hot pack): Yes For the Purpose of:: To decrease pain, To increase ROM and To improve nutrient delivery to tissue Last Seen Last Seen: This patient was last seen in our office 01/13/24. Pertinent comments regarding their Physical therapy will appear below: Pt seen 8 visits of POC and was 60% better. She was to f/u two weeks later to ensure progress but cancelled that visit. At this point, it has been over 2 months and I will discontinue due to nonattendance. At this point I will be discontinuing this patient from physical therapy. I would be happy to see this patient again in the future if found appropriate by the physician. Thank you! Guanakito Craig, DPT, OCS, CSCS Balance/Gait/Functional tests Balance/Special Test Scores Lower Extremity Functional Score: 49
== END 2024-01-13 19:00 | disposition home or self-care (01) ==
LOC: PT 07:00
PROVIDERS: PCP Family Medicine
DX: M70.71 Other bursitis of hip, right hip (principal); M76.891 Other specified enthesopathies of right lower limb, excluding foot
CPT/HCPCS: 97110; 97161; 97530

== ENCOUNTER → 2024-02-07 | Outpatient (CLI) | payer BC, SELFPAY ==
[2024-02-07 09:50] LABS: Absolute Lymphocyte Count 1.94 X10^3/uL (0.83-4.51); Absolute Neutrophil Count 1.7 X10^3/uL (2.0-7.7); Basophil# 0.05 X10^3/uL; Basophil% 1.1 % (0-1); Eosinophil# 0.21 X10^3/uL; Eosinophils% 4.8 % (0-5); Hematocrit 41.5 % (37-47); Lymphocyte # 1.94 X10^3/ul (0.83-4.51); Lymphocyte % 44.5 % (19-41); Mean Corp Hgb Conc 33.7 g/dL (32-36); Mean Corpuscular Hgb 30.8 pg (27.0-32.0); Mean Corpuscular Volume 91.4 fL (81-99); Mean Platelet Vol. 9.9 fl (6.2-12.0); Monocyte# 0.49 X10^3/uL; Monocyte% 11.2 % (0-10); NRBC Flagged by Analyzer 0 % (0-5); Neutrophil # 1.66 X10^3/uL (2.7-7.7); Neutrophil % 38.2 % (47-70); Platelet Count 282 K/mm3 (150-450); RBC Distribution Width CV 12.1 % (11.6-14.6); RBC Distribution Width SD 40.5 fl (35.1-43.9); Red Blood Count 4.54 M/mm3 (4.2-5.4); White Blood Count 4.4 K/mm3 (4.4-11.0)
[2024-02-07 10:05] LABS: Vitamin D,25 Hydroxy 29.7 ng/mL
[2024-02-07 10:21] LABS: ALB/GLOB Ratio 1.1 RATIO (0.9-2.4); AST(SGOT) 15 U/L (15-37); Alanine Aminotransfer ALT/SGPT 26 U/L (13-56); Albumin, Serum 3.7 g/dL (3.2-5.0); Alkaline Phosphatase 71 U/L (45-117); Anion Gap 4 (5-15); BUN 15 mg/dL (7-18); BUN/Creat Ratio 20.2 RATIO (10-20); Calcium,Total 8.9 mg/dL (8.5-10.1); Chloride 113 mmol/L (98-107); Cholesterol 243 mg/dL (200); Creatinine, Serum 0.74 mg/dL (0.55-1.02); EST Glomerular Filtration Rate 84 mL/min (>60); Est Glom Filt Rate - Afr Amer 102 mL/min (>60); Globulin 3.3 g/dL (2.2-4.2); Glucose 93 mg/dL (74-106); High Density Lipoprotein 48 mg/dL; Potassium 3.9 mmol/L (3.5-5.1); Sodium Level 142 mmol/L (136-145); Triglycerides 174 mg/dL; Very Low Density Lipoprotein 35 mg/dL (5-40)
== END | disposition home or self-care (01) ==
PROVIDERS: PCP Family Medicine; Referring Provider Family Medicine; Visit Provider Family Medicine
DX: Z00.00 Encounter for general adult medical examination without abnormal findings (principal); Z13.1 Encounter for screening for diabetes mellitus; Z13.220 Encounter for screening for lipoid disorders; R53.83 Other fatigue
CPT/HCPCS: 36415; 80053; 80061; 82306; 84443; 85025

== ENCOUNTER → 2024-02-14 | Outpatient (CLI) | payer BC, SELFPAY ==
--- NOTE | 2024-02-14 14:41 | RAD_ITS ---
EXAM: XR LUMBOSACRAL SPINE, 2 OR 3 VIEWS CLINICAL INDICATION: Chronic back pain, new sciatica TECHNIQUE: Frontal and lateral views of the lumbar spine and sacrum. COMPARISON: 03/16/2017 lumbar spine radiographs in 10/03/2019 lumbar spine MRI. FINDINGS: VERTEBRAE: Multilevel facet arthrosis and endplate osteophytosis. No fracture, spondylolysis, or spondylolisthesis. SACRUM/COCCYX: Transitional anatomy at the lumbosacral junction with partial sacralization of L5. DISC SPACES: Multilevel intervertebral disc height loss. VASCULATURE: Vascular calcifications. GASTROINTESTINAL TRACT: Normal as visualized. Included bowel gas pattern is non-obstructive. RAD/Lumbar Spine 2 or 3 Views IMPRESSION: 1. No fracture, spondylolysis, or spondylolisthesis. Multilevel degenerative changes. 2. Transitional anatomy at the lumbosacral junction with partial sacralization of L5. Electronically Signed: Lux Mccullough DO at 22:15 EST ,
== END | disposition home or self-care (01) ==
LOC: MTRAD 14:41
PROVIDERS: PCP Family Medicine; Referring Provider Family Medicine; Visit Provider Family Medicine
DX: M54.31 Sciatica, right side (principal)
CPT/HCPCS: 72100